=== PATIENT | female | born 1980 | race Caucasian/White ===

== ENCOUNTER 2018-02-03 17:21 | Emergency (ER) | payer OTHER ==
[~2018-02-03] VITALS: Ht 157.5 cm; Wt 67.6 kg
[2018-02-03 17:23] VITALS: BP 130/77; PULSE 88; RESP 16; TEMP 98.7; O2SAT 98
[2018-02-03] MEDS ORDERED: ALBU6.7H INH (17:41)
--- NOTE | 2018-02-03 17:58 | PD ---
HPI Chief Complaint: Related Problem Time Seen by Provider: 17:42 Travel History International Travel<30 days: No Contact w/Intl Traveler<30days: No Traveled to known affect area: No History of Present Illness HPI The patient is Cypriot-speaking only and [employer] was used for history. 37-year-old female , approximately 2 months , LMP December 09, history of ectopic , here for evaluation of vaginal bleeding and lower abdominal/pelvic pain. Symptoms started today. She reports that 2 weeks ago she was at another facility where she had an ultrasound done that confirmed an IUP. She is having some left lower quadrant abdominal pain that is mild to moderate described as cramping. Bleeding is moderate. She is very concerned that she may be having a miscarriage. She reports that h she is Rh- and required RhoGam with her previous pregnancies. No fevers. PFSH Past Medical History Asthma: Yes Diminished Hearing: No Tetanus Vaccination: Never Vaccinated Influenza Vaccination: No ?: LMP: 12/06/17 Miscarriage: 3 Social History Alcohol Use: No Tobacco Use: No Substance Use: No Allergies-Medications (Allergen,Severity, Reaction): Coded Allergies: No Known Allergies (Verified Allergy, Unknown, 02/03/18) Reported Meds & Prescriptions Reported Meds & Active Scripts Active Reported Proventil Hfa 6.7 GM Inh (Albuterol Sulfate) 90 Mcg/Act Aer 1 Puff INH Q4H PRN Review of Systems Except as stated in HPI: all other systems reviewed are Neg Physical Exam Narrative GENERAL: Well-developed, well-nourished, comfortable, no apparent distress. SKIN: Focused skin assessment warm/dry. HEAD: Atraumatic. Normocephalic. EYES: Pupils equal and round. No scleral icterus. No injection or drainage. ENT: Mucous membranes pink and moist. NECK: Trachea midline. No JVD. CARDIOVASCULAR: Regular rate and rhythm. RESPIRATORY: No accessory muscle use. Clear to auscultation. Breath sounds equal bilaterally. GASTROINTESTINAL: Abdomen soft, nondistended. Mild left lower quadrant tenderness without peritoneal signs. Normal bowel sounds. No hernias. [employer]: Exam performed in the presence of female nurse. Normal external genitalia. Moderate blood in the vaginal vault with normal-appearing cervix. Cervical os is closed. MUSCULOSKELETAL: No obvious deformities. No clubbing. No cyanosis. No edema. NEUROLOGICAL: Awake and alert. No obvious cranial nerve deficits. Motor grossly within normal limits. Normal speech. PSYCHIATRIC: Appropriate mood and affect; insight and judgment normal. Data Data Last Documented VS Vital Signs Date Time Temp Pulse Resp B/P (MAP) Pulse Ox O2 Delivery O2 Flow Rate FiO2 02/03/18 19:37 88 16 108/60 (76) 99 Room Air 02/03/18 17:23 98.7 Orders Orders Beta Hcg (Quant/Titer) (02/03/18 17:54) Complete Blood Count With Diff (02/03/18 17:54) Comprehensive Metabolic Panel (02/03/18 17:54) Gc And Chlamydia Pcr (02/03/18 17:54) Complete Rh (02/03/18 17:54) Type And Screen (02/03/18 17:54) Us Pelvis (Ques Preg/Ectopic) (02/03/18 ) Wet Prep Profile (02/03/18 17:54) Urinalysis - C+S If Indicated (02/03/18 17:54) Ed Urine Pregnancytest Poc (02/03/18 17:54) Rhogam Only (02/03/18 20:04) Urine Culture (02/03/18 20:03) Cephalexin (Keflex) (02/03/18 20:45) Labs Laboratory Tests Test 02/03/18 18:13 02/03/18 19:29 02/03/18 20:03 White Blood Count 7.6 TH/MM3 Red Blood Count 5.14 MIL/MM3 Hemoglobin 14.0 GM/DL Hematocrit 42.1 % Mean Corpuscular Volume 82.0 FL Mean Corpuscular Hemoglobin 27.3 PG Mean Corpuscular Hemoglobin Concent 33.3 % Red Cell Distribution Width 12.5 % Platelet Count 200 TH/MM3 Mean Platelet Volume 9.1 FL Neutrophils (%) (Auto) 72.6 % Lymphocytes (%) (Auto) 16.4 % Monocytes (%) (Auto) 5.0 % Eosinophils (%) (Auto) 4.8 % Basophils (%) (Auto) 1.2 % Neutrophils # (Auto) 5.5 TH/MM3 Lymphocytes # (Auto) 1.2 TH/MM3 Monocytes # (Auto) 0.4 TH/MM3 Eosinophils # (Auto) 0.4 TH/MM3 Basophils # (Auto) 0.1 TH/MM3 CBC Comment DIFF FINAL Differential Comment Blood Urea Nitrogen 9 MG/DL Creatinine 0.58 MG/DL Random Glucose 79 MG/DL Total Protein 8.2 GM/DL Albumin 3.6 GM/DL Calcium Level 9.0 MG/DL Alkaline Phosphatase 40 U/L Aspartate Amino Transf (AST/SGOT) 8 U/L Alanine Aminotransferase (ALT/SGPT) 15 U/L Total Bilirubin 0.3 MG/DL Sodium Level 138 MEQ/L Potassium Level 3.7 MEQ/L Chloride Level 106 MEQ/L Carbon Dioxide Level 25.7 MEQ/L Anion Gap 6 MEQ/L Estimat Glomerular Filtration Rate 117 ML/MIN Human Chorionic Gonadotropin, Quant 13722 MIU/ML Clue Cells (Wet Prep) NONE SEEN Vaginal Trichomonas (Wet Prep) NONE SEEN Vaginal Yeast (Wet Prep) NONE SEEN Urine Color YELLOW Urine Turbidity SL CLOUDY Urine pH 5.5 Urine Specific [place] GREATER/EQUAL 1.030 Urine Protein TRACE mg/dL Urine Glucose (UA) NEG mg/dL Urine Ketones 40 mg/dL Urine Occult Blood LARGE Urine Nitrite NEG Urine Bilirubin NEG Urine Urobilinogen 0.2 MG/DL Urine Leukocyte Esterase NEG Urine RBC 4-9 /hpf Urine WBC 6-8 /hpf Urine Squamous Epithelial Cells > 8 /hpf Urine Bacteria MOD /hpf Microscopic Urinalysis Comment CULTURE INDICATED MDM Medical Decision Making Medical Screen Exam Complete: Yes Emergency Medical Condition: Yes Differential Diagnosis , ectopic , spontaneous , threatened Narrative Course Vital signs are within normal limits. CBC: WBC 7.6, hemoglobin 14, hematocrit 42.1, platelets 200. CMP is unremarkable. Beta-hCG is 72,062. UA shows 40 ketones, large occult blood, 4-9 RBCs, 6-8 WBCs, moderate bacteria, culture indicated. Wet prep is negative. Pelvic ultrasound: CONCLUSION: Unremarkable 9 week IUP Blood type is AB-. The patient cervical osseous closed, however she does have a moderate amount of blood in her vaginal vault. I discussed this with the on-call OB hospitalist who recommends RhoGam at this time. Using the [employer] shell grader for Cypriot, the patient was made aware of all findings and all questions were answered. After she receives RhoGam she will be discharged home. Pelvic rest endorsed. She will be started on Keflex for bacteriuria in . She was advised to follow-up with an PRINTING AGENT physician this week. She was advised on when to return to the emergency department. She verbalizes understanding and agreement with plan. Diagnosis Primary Impression: Threatened Additional Impression: Bacteriuria during Referrals: [facility] 2 days Additional Instructions: Follow-up with an PRINTING AGENT physician this week. Return to the emergency department for worsening symptoms or any other concerns as discussed. Scripts Cephalexin (Keflex) 500 Mg Cap 500 MG PO Q12H for Infection for 7 Days, #14 CAP 0 Refills Prov: Trell Brown MD 02/03/18 Disposition: 01 DISCHARGE HOME Condition: Stable Trell Brown MD Feb 03, 2018 17:58
[2018-02-03 18:22] LABS: AUTOMATED NEUTROPHIL # 5.5 TH/MM3 (1.8-7.7); BASOPHIL # 0.1 TH/MM3 (0-0.2); BASOPHIL % 1.2 % (0.0-2.0); EOSINOPHIL # 0.4 TH/MM3 (0-0.4); EOSINOPHIL % 4.8 % (0.0-4.0); HEMATOCRIT 42.1 % (35.0-46.0); LYMPH % 16.4 % (9.0-44.0); LYMPHOCYTE # 1.2 TH/MM3 (1.0-4.8); MEAN CORPUSCULAR HEMOGLOBIN 27.3 PG (27.0-34.0); MEAN CORPUSCULAR HGB CONC 33.3 % (32.0-36.0); MEAN PLATELET VOLUME 9.1 FL (7.0-11.0); MONOCYTE # 0.4 TH/MM3 (0-0.9); NEUT % 72.6 % (16.0-70.0); PLATELET COUNT 200 TH/MM3 (150-450); RED BLOOD COUNT 5.14 MIL/MM3 (4.00-5.30); RED CELL DISTRIBUTION WIDTH 12.5 % (11.6-17.2); WHITE BLOOD COUNT 7.6 TH/MM3 (4.0-11.0)
[2018-02-03 18:32] LABS: CHLORIDE 106 MEQ/L (98-107); SODIUM (NA) 138 MEQ/L (136-145)
[2018-02-03 18:36] LABS: ALBUMIN 3.6 GM/DL (3.4-5.0); BICARBONATE 25.7 MEQ/L (21.0-32.0); BLOOD UREA NITROGEN 9 MG/DL (7-18); GLUCOSE,RANDOM 79 MG/DL (74-106)
[2018-02-03 18:39] LABS: ALT (GPT) 15 U/L (10-53); AST (GOT) 8 U/L (15-37); CREATININE 0.58 MG/DL (0.50-1.00); GLOMERULAR FILTRATION RATE 117 ML/MIN (>89)
[2018-02-03 18:41] LABS: TOTAL BILIRUBIN ADULT 0.3 MG/DL (0.2-1.0); TOTAL PROTEIN 8.2 GM/DL (6.4-8.2)
[2018-02-03 18:42] LABS: ALKALINE PHOSPHATASE 40 U/L (45-117)
--- NOTE | 2018-02-03 19:13 | RADRPT ---
EXAM DATE/TIME: 02/03/2018 18:28 [place] COMPARISON: No previous studies available for comparison. INDICATIONS : Pelvic pain and bleeding. LAB(S): Beta-hC,062 MEDICAL HISTORY : . SURGICAL HISTORY : ENCOUNTER: Initial ACUITY: 1 day PAIN SCORE: 3/10 LOCATION: Bilateral pelvis MEASUREMENTS: UTERUS: 8.6 x 8.6 x 5.5 cm ENDOMETRIAL STRIPE: >20 mm RIGHT OVARY: 2.6 x 1.5 x 1.4 cm LEFT OVARY: 3.5 x 2.3 x 2.1 cm FREE FLUID: No CROWN RUMP LENGTH: 2.26 cm = 9 WKS 0 DAYS FHR: 159 BPM FINDINGS: UTERUS: Intrauterine gestation is identified. [place]-rump length is estimated at 22.3 mm yielding estimated ge stational age of 9 weeks. cardiac activity is detected at approximately 160 beats per minute. RIGHT OVARY: Ovary contains no mass or significant cystic lesion. LEFT OVARY: Ovary contains no mass or significant cystic lesion. MISCELLANEOUS: No free fluid. CONCLUSION: Unremarkable 9 week IUP Pawel Cox MD on February 03, 2018 at 19:10 Board Certified Radiologist. This report was verified electronically.
[2018-02-03 19:37] VITALS: BP 108/60; PULSE 88; RESP 16; O2SAT 99
[2018-02-03 20:13] LABS: BILIRUBIN, URINE NEG (NEG); BLOOD, URINE LARGE (NEG); GLUCOSE,URINE NEG (NEG); KETONE, URINE 40 mg/dL (NEG); NITRITE,URINE NEG (NEG); PH, URINE 5.5 (5.0-8.5); URINE COLOR YELLOW (YELLW/STRAW); URINE LEUKOCYTE ESTERASE NEG (NEG)
[2018-02-03 20:20] LABS: BACTERIA, URINE MOD /hpf; SQUAMOUS EPITHELIAL CELL URINE > 8 /hpf (0-5)
[2018-02-03] MEDS ORDERED: CEPH-460 PO (20:33)
[2018-02-03] MEDS ORDERED: CEPHALEXIN MONOHYDRATE 500 MG CAP PO ONE (20:45)
[2018-02-03 20:56] VITALS: BP 107/63; PULSE 78; RESP 16; O2SAT 100
[2018-02-03 21:21] VITALS: BP 114/71; PULSE 84; RESP 16; TEMP 98.4; O2SAT 99
== END 2018-02-03 22:31 | disposition home or self-care (01) ==
LOC: PHED 17:21
DX: O20.0 Threatened abortion (principal); R82.71 Bacteriuria; J45.909 Unspecified asthma, uncomplicated; R10.30 Lower abdominal pain, unspecified; Z3A.09 9 weeks gestation of pregnancy
CPT/HCPCS: 76700; 80053; 81001; 84702; 85025; 86077; 86850; 86870; 86886; 86900; 86901; 87086; 87210; 87491; 87591; 90384; 99284; J2790

== ENCOUNTER 2018-03-12 09:02 | Emergency (ER) | payer MEDICAID ==
[~2018-03-12] VITALS: Ht 167.6 cm; Wt 69.5 kg
[~2018-03-12 09:02] MED LIST: ALBU6.7H INH; CEPH-460 PO
[2018-03-12 09:14] VITALS: RESP 20; O2SAT 96
--- NOTE | 2018-03-12 09:14 | PD ---
HPI Chief Complaint: Respiratory Symptoms Time Seen by Provider: 09:08 Travel History International Travel<30 days: No Contact w/Intl Traveler<30days: No Traveled to known affect area: No History of Present Illness HPI 37-year-old female complains of shortness of breath. Patient has history of asthma. Patient states that she has increasing shortness of breath for the past 4 days. Patient denies any chest pain. Patient is 12 weeks . Patient denies abdominal pain. Patient denies any vaginal discharge or bleeding. Patient states that she has inhaler and nebulizer machine at home. Patient ran out of her medication for the machine recently. Patient denies any fever chills. Patient has not seen an OB physician for this so far. PFSH Past Medical History Asthma: Yes Diminished Hearing: No Miscarriage: 3 Social History Alcohol Use: No Tobacco Use: No Substance Use: No Allergies-Medications (Allergen,Severity, Reaction): Coded Allergies: No Known Allergies (Verified Allergy, Unknown, 02/03/18) Reported Meds & Prescriptions Reported Meds & Active Scripts Active Reported Proventil Hfa 6.7 GM Inh (Albuterol Sulfate) 90 Mcg/Act Aer 1 Puff INH Q4H PRN Review of Systems General / Constitutional: No: Fever Eyes: No: Visual changes HENT: No: Headaches Cardiovascular: No: Chest Pain or Discomfort Respiratory: Positive: Shortness of Breath Gastrointestinal: No: Abdominal Pain Genitourinary: No: Dysuria Musculoskeletal: No: Pain Skin: No Rash Neurologic: No: Weakness Psychiatric: No: Depression Endocrine: No: Polydipsia Hematologic/Lymphatic: No: Easy Bruising Physical Exam Narrative GENERAL: Well-nourished, well-developed patient. SKIN: Focused skin assessment warm/dry. HEAD: Normocephalic. EYES: No scleral icterus. No injection or drainage. NECK: Supple, trachea midline. No JVD or lymphadenopathy. CARDIOVASCULAR: Regular rate and rhythm without murmurs, gallops, or rubs. RESPIRATORY: Breath sounds equal bilaterally. No accessory muscle use. Patient has moderate expiratory wheezes bilaterally. No rhonchi. GASTROINTESTINAL: Abdomen soft, non-tender, nondistended. MUSCULOSKELETAL: No cyanosis, or edema. BACK: Nontender without obvious deformity. No CVA tenderness. Data Data Last Documented VS Vital Signs Date Time Temp Pulse Resp B/P (MAP) Pulse Ox O2 Delivery O2 Flow Rate FiO2 03/12/18 09:40 98.2 109 20 124/68 (86) 96 03/12/18 09:39 Room Air Orders Orders Iv Access Insert/Monitor (03/12/18 09:08) Ecg Monitoring (03/12/18 09:08) Oximetry (03/12/18 09:08) Sodium Chloride 0.9% Flush (Ns Flush) (03/12/18 09:15) Methylprednisolone So Succ Inj (Solumedr (03/12/18 09:15) Albuterol-Ipratropium Neb (Duoneb Neb) (03/12/18 09:15) Ed Discharge Order (03/12/18 10:29) MDM Medical Decision Making Medical Screen Exam Complete: Yes Emergency Medical Condition: Yes Differential Diagnosis Differential diagnosis including acute exacerbation of asthma, bronchitis, pneumonia, PE, pneumothorax. Narrative Course 37-year-old female with shortness of breath. Patient has history of asthma. Patient is 12 weeks . Albuterol Atrovent unit dose treatment 3. Some Medrol 125 mg IV. 10:29 AM. Reexamination patient feeling much better. Lung is clear, no wheezes. Procedures Procedure Narrative Emergency Department Pelvic ultrasound was performed with patient consent. The curvilinear probe was used in the transverse and sagittal views within the suprapubic region revealing single intrauterine . heart rate was 146. Fetus active. Diagnosis Primary Impression: Acute asthma exacerbation Qualified Codes: J45.51 - Severe persistent asthma with (acute) exacerbation Patient Instructions: General Instructions Additional Instructions: Continue with albuterol and Atrovent unit dose inhaler as needed for shortness of breath. Follow-up with personal physician. Return if worse. Med/Other Pt SpecificInfo: Prescription(s) given Scripts Ipratropium Neb (Ipratropium Neb) 0.5 Mg/2.5 Ml Amp 0.5 MG NEB Q4HR NEB Y for SHORTNESS OF BREATH, #60 NEBULE 0 Refills Prov: Aftab Kidd MD 03/12/18 Albuterol Neb (Albuterol Neb) 2.5 Mg/3 Ml Neb 2.5 MG NEB Q4HR NEB for Breathing Treatment, #60 NEBULE 0 Refills While awake Prov: Aftab Kidd MD 5/26/18 Albuterol 18 GM Inh (Ventolin Hfa 18 GM Inh) 90 Mcg/Act Aer 2 PUFF INH Q4-6H Y for SHORTNESS OF BREATH, #1 INHALER 0 Refills Prov: Aftab Kidd MD 03/12/18 Disposition: 01 DISCHARGE HOME Condition: Stable Aftab Kidd MD March 12, 2018 09:14
[2018-03-12] MEDS ORDERED: methylPREDNISolone SOD SUCC 125 MG/2 ML VIAL IV PUSH ONE (09:15)
[2018-03-12] MEDS ORDERED: SODIUM CHLORIDE 0.9% FLUSH 10 ML FLUSH IVF PRN (09:15)
[2018-03-12] MEDS: RESP: ALBUTEROL 2.5 MG/IPRATROPIUM 0.5 MG NEB (SCH) INH (09:19)
[2018-03-12 09:40] VITALS: BP 124/68; PULSE 109; RESP 20; TEMP 98.2; O2SAT 96
[2018-03-12 10:29] VITALS: BP 118/60
[2018-03-12] MEDS ORDERED: ALBU0.08 NEB (10:32)
[2018-03-12] MEDS ORDERED: IPRA0.02 NEB (10:32)
[2018-03-12] MEDS ORDERED: VENTAER INH (10:32)
== END 2018-03-12 10:40 | disposition home or self-care (01) ==
LOC: PHED 09:02
DX: O99.511 Diseases of the respiratory system complicating pregnancy, first trimester (principal); J45.51 Severe persistent asthma with (acute) exacerbation; Z3A.12 12 weeks gestation of pregnancy
CPT/HCPCS: 94640; 94664; 96374; 99284; J2930